=== PATIENT | male | born 1965 | race Caucasian/White ===

== ENCOUNTER 2019-04-04 15:54 | Emergency (ER) | payer OTHER ==
[~2019-04-04] VITALS: Ht 182.9 cm; Wt 131.5 kg
[~2019-04-04 15:54] MED LIST: AMBEREN PO; ENDOCET 10-3251 EACH PO; FISHOIL PO; FLEXERIL PO; IBUPROFEN 800800 MG PO; LIPITOR40 MG PO; LISINOPRIL40 MG PO; PERCOCET 5-3251 EACH PO; TOPROL XL50 MG PO
[2019-04-04] MEDS ORDERED: NAPROSYN500 MG PO (17:45)
[2019-04-04] MEDS ORDERED: NORCO 5-325 TA1 EAC1 PO ×2 (17:45→17:50)
[2019-04-04] MEDS ORDERED: ATENOLOL 100MG100 MG PO (18:04)
[2019-04-04 18:11] VITALS: BP 131/52
== END 2019-04-04 18:09 | disposition home or self-care (01) ==
LOC: ER 15:54
DX: S82.431A Displaced oblique fracture of shaft of right fibula, initial encounter for closed fracture (principal); S93.491A Sprain of other ligament of right ankle, initial encounter; I10 Essential (primary) hypertension; E78.5 Hyperlipidemia, unspecified; Z87.442 Personal history of urinary calculi; W01.0XXA Fall on same level from slipping, tripping and stumbling without subsequent striking against object, initial encounter; Y93.89 Activity, other specified; Y92.89 Other specified places as the place of occurrence of the external cause; Y99.8 Other external cause status